=== PATIENT | male | born 1960 | race Caucasian/White ===

== ENCOUNTER → 2022-04-16 | Outpatient (CLI) | payer OTHER ==
[~2022-04-16] MED LIST: ASPIRIN EC81 MG PO; ASPIRIN325 MG PO; ATORVASTATIN CA20 MG PO; CARVEDILOL6.25 MG PO; CLOPIDOGREL75 MG PO; HYDROCHLOROTHIA25 MG PO; IMDUR ER TAB 3030 MG PO; ISOSORBIDE MONO60 MG PO; LISINOPRIL10 MG PO; LISINOPRIL40 MG PO; NICOTINE PATCH1 EAC2 TOP; NITROGLYCERIN0.4 MG SL; PLAVIX 75 MG TA75 MG PO; TOPROL XL25 MG PO
== END ==
LOC: HEART 5 04-03 07:30
DX: I20.9 Angina pectoris, unspecified (principal); R94.39 Abnormal result of other cardiovascular function study
CPT/HCPCS: 78452; A9502; J2785

== ENCOUNTER → 2022-04-24 | Outpatient (CLI) | payer OTHER | LOC: ECHO 08:30 | DX: I20.9 Angina pectoris, unspecified (principal); I42.9 Cardiomyopathy, unspecified | CPT/HCPCS: ECHO; 93306 ==